=== PATIENT | male | born 1995 | race African-American/Black ===

== ENCOUNTER 2017-01-19 02:57 | Emergency (ER) | payer OTHER ==
[2017-01-19 03:07] VITALS: BP 115/72; PULSE 78; TEMP 97.9; BMI 36.2
[2017-01-19] MEDS ORDERED: IBUPROFEN 400 MG TABLET (FP) PO ONE ×2 (03:14→03:16)
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
== END 2017-01-19 03:20 | disposition home or self-care (01) ==
LOC: FER 02:57
DX: S39.012A Strain of muscle, fascia and tendon of lower back, initial encounter (principal); V43.62XA Car passenger injured in collision with other type car in traffic accident, initial encounter; Y93.89 Activity, other specified; Y92.410 Unspecified street and highway as the place of occurrence of the external cause
CPT/HCPCS: 99281-25